=== PATIENT | female | born 1965 | race Caucasian/White ===

== ENCOUNTER 2023-07-24 17:48 | Emergency (ER) | payer OTHER, BC ==
[2023-07-24] MEDS ORDERED: Bacitracin/Neomycin/Polymyxin B Oint 0.9 GM U/D Packet TOP STA (17:54)
[2023-07-24] MEDS ORDERED: Lidocaine 1% with EPINEPHrine 1:100,000 20 ML MDV INJECT ONE (17:54)
[2023-07-24] MEDS ORDERED: Diphtheria,Pertussis(Acell),Tetanus Vaccine 0.5 ML Syringe IM ONE (17:54)
[2023-07-24 17:56] VITALS: PULSE 65
[2023-07-24 18:27] VITALS: BP 191/90
== END 2023-07-24 19:15 | disposition home or self-care (01) ==
LOC: CC.ED 17:48
DX: S61.412A Laceration without foreign body of left hand, initial encounter (principal); Z23 Encounter for immunization; W26.0XXA Contact with knife, initial encounter; Y92.000 Kitchen of unspecified non-institutional (private) residence as the place of occurrence of the external cause
CPT/HCPCS: 12001; 90471; 90715; 99282; 99282-25; A9270-GY; J3490